=== PATIENT | female | born 2000 | race Two or more races ===

== ENCOUNTER 2025-06-13 07:36 | Emergency (ER) | payer MEDICAID ==
[~2025-06-13] VITALS: Ht 165.1 cm; Wt 66.3 kg
[2025-06-13] MEDS: methylPREDNISolone SOD SUCC 125 MG/2 ML VL IV ONE (08:06)
[2025-06-13] MEDS: ALBUTEROL SULF 2.5 MG/0.5ML(0.5%) NEB SOLN NEB ONE (08:07)
[2025-06-13] MEDS: IPRATROPIUM BROM 0.5 MG/2.5ML INH SOL NEB ONE (08:07)
--- NOTE | 2025-06-13 08:20 | ED.PDOC ---
SOB-HPI HPI Comments 24 year old female with PMHx Asthma, presents to the ED with a chief complaint of asthma onset today (06/13/25) around 03:50. Patient states she woke up around 03:50 experiencing cough, shortness of breath, chest discomfort described as pressure sensation, rates pain 3/10. Patient used inhaler at home with no improvement of symptoms. Denies fever, chills, headache, nausea, vomiting, diarrhea, abdominal pain, dysuria, hematuria, dizziness, blurred vision. No other symptoms or modifying factors present at this time. 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 History Family History Family History: Reviewed,noncontributory to illness, No family hx of Cancer, No family hx of DM, No family hx of Heart williams, No family hx of HTN, No family hx ofKidney williams, No family hx of Liver williams, No family hx of Lung williams, No family hx of Stroke Social History Smoker: Non-Smoker Alcohol: Denies ETOH Use Drugs: Denies Drug Use Lives In: Home Constitutional: denies: chills, diaphoresis, fatigue, fever, malaise, sweats, w eakness, others EENTM: denies: blurred vision, double vision, ear bleeding, ear discharge, ear drainage, ear pain, ear ringing, eye pain, eye redness, hearing loss, mouth pain, mouth swelling, nasal discharge, nose bleeding, nose congestion, nose pain, photophobia, tearing, throat pain, throat swelling, voice changes, others Respiratory: reports: cough, shortness of breath; denies: hemoptysis, orthopnea, SOB at rest, SOB with excertion, stridor, wheezing, others Cardiovascular: reports: chest pain (pressure); denies: dizzy spells, diaphoresis, Dyspnea on exertion, edema, irregular heart beat, left arm pain, lightheadedness, palpitations, PND, syncope, others Gastrointestinal: denies: abdomen distended, abdominal pain, blood streaked wilmer wels, constipated, diarrhea, dysphagia, difficulty swallowing, hematemesis, melena, nausea, poor appetite, poor fluid intake, rectal bleeding, rectal pain, vomiting, others Genitourinary: denies: abnormal vagina bleeding, burning, dyspareunia, dysuria, flank pain, frequency, hematuria, incontinence, pain, , vagina discharge, urgency, others Neurological: denies: dizziness, fainting, headache, left sided numbness, left sided weakness, numbness, paresthesia, pre-existing deficit, right sided numbness, right sided weakness, seizure, speech problems, tingling, tremors, weakness, others Musculoskeletal: denies: back pain, gout, joint pain, joint swelling, muscle pain, muscle stiffness, neck pain, others Integumetry: denies: bruises, change in color, change in hair/nails, dryness, laceration, lesions, lumps, rash, wounds, others Allergic/Immunocompromised: denies: Difficulty Healing, Frequent Infections, Hives, Itching, others Hematologic/Lymphatic: denies: anemia, blood clots, easy bleeding, easy bruis ing, swollen glands, others Endocrine: denies: excessive hunger, excessive sweating, excessive thirst, exc essive urination, flushing, intolerance to cold, intolerance to heat, unexplained weight gain, unexplained weight loss, others Psychiatric: denies: anxiety, bipolar disorder, depression, hopeless, panic disorder, schizophrenia, sleepless, suicidal, others All Other Systems: Reviewed and Negative Physical Exam General Appearance: Normal HEENT: Normal ENT Inspection, Pharynx Normal, TMs Normal Neck: Full Range of Motion, Non-Tender, Normal, Normal Inspection Respiratory: Wheezing (bilateral) Cardiovascular: No Edema, No JVD, No Murmur, No Gallop, Normal Peripheral Pulses, Regular Rate/Rhythm Breast Exam: Deferred Gastrointestinal: No Organomegaly, Non Tender, No Pulsatile Mass, Normal Bowel Sounds, Soft Genitalia: Deferred Pelvic: Deferred Rectal: Deferred Extremities: No calf tenderness, Normal capillary refill, Normal inspection, Normal range of motion, Non-tender, No pedal edema Musculoskeletal : Apperance: Normal Neurologic: Alert, bowling ball finisher II-XII nml as Tested, No Motor Deficits, Normal Affect, Normal Mood, No Sensory Deficits Cerebellar Function: Normal Reflexes: Normal Skin: Dry, Normal Color, Warm Lymphatic: No Adenopathy Was a procedure done? Was a procedure done?: No Differential Dx Differential Diagnosis: Asthma, Bronchitis, Pneumonia, URI X-Ray, Labs, Meds, VS Vital Signs Date Time Temp Pulse Resp B/P (MAP) Pulse Ox O2 Delivery O2 Flow Rate FiO2 06/13/25 08:24 98.1 122 27 114/60 (78) 97 98.1 06/13/25 08:24 Nasal Cannula* 2 28 06/13/25 08:12 20 98 Nasal Cannula* 3 32 06/13/25 08:00 129 06/13/25 07:39 97.7 125 22 122/79 93 97.7 Current Medications Medications (Trade) Dose Ordered Sig/Alejandro Route Start Time Stop Time Status Last Admin Albuterol (Ventolin Medneb) 2.5 mg ONCE ONCE NEB 06/13/25 08:00 06/13/25 08:01 DC 06/13/25 08:07 Ipratropium [place] (Atrovent Medneb) 0.5 mg ONCE ONCE NEB 06/13/25 08:00 06/13/25 08:01 DC 06/13/25 08:07 Methylprednisolone Sodium Succinate (Solu Medrol) 125 mg ONCE ONCE IV 06/13/25 08:00 06/13/25 08:01 DC 06/13/25 08:06 [place] [id number] Ph: [phone] DIAGNOSTIC IMAGING Diagnostic Imaging Report : [id number] Signed PATIENT: MICHELA ARAUJO ACCT: [id number] UNIT: [id number] : 2000 LOC: ER ROOM / BED: / AGE / SEX: 24 / F ADM STATUS: REG ER SERVICE 0810 ORDERING PHYSICIAN: JOON GALLEGO MD PROCEDURE(s): CXRP - CHEST PORTABLE REASON: asthma ORDER NUMBER(s): [id number], ACCESSION NUMBER(s): [id number] INDICATION: asthma TECHNIQUE: Frontal view of the chest. COMPARISON: None FINDINGS: . The heart and mediastinal contours are grossly unremarkable. There is no evidence of pleural disease. The lungs are clear. The bony structures of the chest are intact without fracture. IMPRESSION: 1. No evidence of acute disease. Possible dextrocardia. ATED BY: VARGHESE EM MD DICTATED DATE/TIME: 06/13/25924 SIGNED BY: VARGHESE EM MD SIGNED DATE/TIME: 06/13/25924 CC: Time of 1ST Reevaluation: 08:45 Reevaluation 1ST: Unchanged Patient Education/Counseling: Diagnosis, Treatment, Prognosis Family Education/Counseling: Diagnosis, Treatment, Prognosis SEPSIS Sepsis Screen Date sepsis recognized/suspect: Jun 13, 2025 Time Sepsis recognized/suspect: 0739 Recent Procedure: No On Antibiotic Therapy: No Respiratory Rate >20: No Heart Rate >90: Yes Temp<36 C (96.8 F) or >38.3 C: No SBP <90 or MAP <65 mmHG: No New Acute Mental Status Change: No Is the patient on CPAP, BIPAP,: No Physician Orders Chest Portable (06/13/25 08:10) Vital Signs Date Time Temp Pulse Resp B/P (MAP) Pulse Ox O2 Delivery O2 Flow Rate FiO2 06/13/25 08:24 98.1 122 27 114/60 (78) 97 98.1 06/13/25 08:24 Nasal Cannula* 2 28 06/13/25 08:12 20 98 Nasal Cannula* 3 32 06/13/25 08:00 129 06/13/25 07:39 97.7 125 22 122/79 93 97.7 Medications Medications Dose Ordered Sig/Alejandro Route Start Time Stop Time Status Last Admin Dose Admin Albuterol 2.5 mg ONCE ONCE NEB 06/13/25 08:00 06/13/25 08:01 DC 06/13/25 08:07 Ipratropium [place] 0.5 mg ONCE ONCE NEB 06/13/25 08:00 06/13/25 08:01 DC 06/13/25 08:07 Methylprednisolone Sodium Succinate 125 mg ONCE ONCE IV 06/13/25 08:00 06/13/25 08:01 DC 06/13/25 08:06 Departure 1 Departure Time of Disposition: 10:36 (Patient likely with an asthma exacerbation. On reassessment the patient had clear lungs and is feeling better. We will discharge patient home with outpatient follow up) Impression: Primary Impression: Acute asthma Disposition: HOME / SELF CARE / HOMELESS Condition: Stable Additional Instructions: You likely had an asthma exacerbation. You should use your inhaler as directed. Your prescribed steroids. Please take as directed. It is important to follow up with the regular doctor within 1 week. If your symptoms worsen or you have any other concerns please return to the emergency room. e-Prescriptions Prednisone (Prednisone) 20 Mg Tab 20 MG PO DAILY for 4 Days, #4 MG Prov: JOON GALLEGO MD 06/13/25 Discharged With: Self Critical Care Note Critical Care Time?: No Stability Stability form required: No Heart Score Heart Score: Heart Score Response (Comments) Value History N/A 0 EKG N/A 0 Age N/A 0 Risk Factors N/A 0 Troponin N/A 0 Total 0 I personally scribed for JOON GALLEGO MD ([email or web address]) on 06/13/25 at 08:20. Electronically submitted by Soila Kerns ([email or web address]). I personally scribed for JOON GALLEGO MD ([email or web address]) on 06/13/25 at 10:10. Electronically submitted by Soila Kerns ([email or web address]). JOON GALLEGO MD Jun 13, 2025 08:20
[2025-06-13 08:24] VITALS: TEMP 98.1
--- NOTE | 2025-06-13 09:28 | DVH ---
INDICATION: asthma TECHNIQUE: Frontal view of the chest. COMPARISON: None FINDINGS: . The heart and mediastinal contours are grossly unremarkable. There is no evidence of pleural disea se. The lungs are clear. The bony structures of the chest are intact without fracture. IMPRESSION: 1. No evidence of acute disease. Possible dextrocardia.
[2025-06-13 10:00] VITALS: BP 94/64; PULSE 122; RESP 23; O2SAT 94
[2025-06-13] MEDS ORDERED: PRED20TA2 PO (10:40)
[2025-06-13] MEDS ORDERED: ALBUAER3 IN (10:58)
== END 2025-06-13 11:08 | disposition home or self-care (01) ==
LOC: ER 07:36
DX: J45.909 Unspecified asthma, uncomplicated (principal)
CPT/HCPCS: 71045; 94640; 96374; 99283; J2919